=== PATIENT | female | born 1935 | race Caucasian/White ===

== ENCOUNTER 2021-07-16 18:29 | Emergency (ER) | payer OTHER ==
[~2021-07-16] VITALS: Ht 180.3 cm; Wt 60.3 kg
[2021-07-16 18:44] VITALS: BP_SYST 138
[2021-07-16] MEDS ORDERED: LIDOCAINE/EPI 1% 1:100000 20 ML VIAL INJ ONE (19:45)
[2021-07-16] MEDS ORDERED: DIPH-TET-PERTUS Vaccine 0.5 ML VIAL (ADACEL) I.M. ONE (19:45)
[2021-07-16] MEDS ORDERED: BACITRACIN 1 GM OINT TP ONE (19:45)
[2021-07-16 20:48] VITALS: BP_SYST 132
== END 2021-07-16 20:44 | disposition home or self-care (01) ==
LOC: SED 18:29
DX: S01.01XA Laceration without foreign body of scalp, initial encounter (principal); I10 Essential (primary) hypertension; Y04.0XXA Assault by unarmed brawl or fight, initial encounter; Y93.89 Activity, other specified; Y92.89 Other specified places as the place of occurrence of the external cause; Y99.8 Other external cause status
CPT/HCPCS: 90715; 99283